=== PATIENT | male | born 1940 | race Caucasian/White ===

== ENCOUNTER 2019-08-15 18:12 | Emergency (ER) | payer MEDICARE, SELFPAY ==
[2019-08-15 18:14] VITALS: BP 153/102; PULSE 76; RESP 18; TEMP 37.3; O2SAT 100; BMI 33.4
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
[2019-08-15 18:26] VITALS: BP 153/102; PULSE 80; RESP 17; O2SAT 98
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
[2019-08-15] MEDS: Diphth,Pertuss(Acell),Tet Vac 0.5 ML Vial IM (19:09)
[2019-08-15 19:19] VITALS: BP 158/83; PULSE 68; RESP 16; O2SAT 98
--- NOTE | 2019-08-15 19:20 | ED.RN ---
REVIEWED D/C INSTRUCTIONS, FOLLOW UP CARE, AND S/S THAT WOULD WARRANT A RETURN TO THE ED WITH PT. PT VERBALIZED AN UNDERSTANDING AND DENIES FURTHER QUESTIONS FOR THIS RN. PT SKIN P/W/D, RESP EVEN AND UNLABORED, PT A&OX 3 NO DISTRESS NOTED. PT AMBULATED OUT OF ED, GAIT STEADY.
== END 2019-08-15 19:21 | disposition home or self-care (01) ==
LOC: ED 19:15
PROVIDERS: Emergency Provider Emergency Medicine; PCP Internal Medicine
DX: S20.212A Contusion of left front wall of thorax, initial encounter (principal); S20.211A Contusion of right front wall of thorax, initial encounter; S61.512A Laceration without foreign body of left wrist, initial encounter; S80.212A Abrasion, left knee, initial encounter; S80.211A Abrasion, right knee, initial encounter; V43.52XA Car driver injured in collision with other type car in traffic accident, initial encounter; Y93.89 Activity, other specified; Y92.410 Unspecified street and highway as the place of occurrence of the external cause
CPT/HCPCS: 71046; 73110; 90471; 90715; 99282